=== PATIENT | male | born 1935 | race Caucasian/White ===

== ENCOUNTER 2017-01-15 05:40 | Inpatient (IN) | payer BC ==
--- NOTE | ~2017-01-15 | EGD ---
EGD REPORT [facility] [address] [address] NAME: RUDDY LIMON : 34 STATUS : ADM IN PAT#: [id number] AGE: 81 ADM/REG DATE : 01/15/17 MR#: [id number] REPORT SERV DATE: 01/30/17 DICTATED BY: TALIB MONTERROSO DATE: 01/30/17 REPORT STATUS : Draft [facility]ANSCRIBED BY: [facility] DATE: 01/30/17 Endoscopy Center Patient Name: Ruddy Limon Date of : 1935 Attending MD: TALIB MONTERROSO MD Procedure Date No Time: 01/30/2017 Procedure: Upper GI endoscopy Indications: Place PEG because patient is unable to eat, Place PEG due to impaired swallowing, Place PEG due to aspiration risk Referring MD: PRIYA LEOS Medicines: Propofol per Anesthesia Complications: No immediate complications. Procedure: Pre-Anesthesia Assessment: - ASA Grade Assessment: II - A patient with mild systemic disease. After obtaining informed consent, the endoscope was passed under direct vision. Throughout the procedure, the patient's blood pressure, pulse, and oxygen saturations were monitored continuously. The GIF [id number] was introduced through the mouth, and advanced to the third part of duodenum. The upper GI endoscopy was accomplished without difficulty. The patient tolerated the procedure well. Findings: Non-severe esophagitis with no bleeding was found in the entire esophagus. A small hiatus hernia was present. as seen on retroflexion Diffuse mild inflammation characterized by congestion (edema) and erythema was found in the entire examined stomach. The patient was placed in the supine position for PEG placement. The stomach was insufflated to appose gastric and abdominal ahuja. A site was located in the body of the stomach with excellent transillumination and manual external pressure for placement. The abdominal wall was marked and prepped in a sterile manner. The area was anesthetized with 4 mL of 1% lidocaine. The trocar needle was introduced through the abdominal wall and into the stomach under direct endoscopic view. A snare was introduced through the endoscope and opened in the gastric lumen. The guide wire was passed through the trocar and into the open snare. The snare was closed around the guide wire. The endoscope and snare were removed, pulling the wire out through the mouth. A skin incision was made at the site of needle insertion. The externally removable 24 Fr EndoVive Safety gastrostomy tube was lubricated. The G-tube was passed over the guide wire through the mouth, and into the stomach. The trocar EGD REPORT [place] [id number] [facility] [place]. [address] NAME: RUDDY LIMON : 34 STATUS : ADM IN [facility]#: [id number] AGE: 81 ADM/REG DATE : 01/15/17 MR#: [id number] REPORT SERV DATE: 01/30/17 DICTATED BY: TALIB MONTERROSO DATE: 01/30/17 REPORT STATUS : Draft TRANSCRIBED BY: [employer] SERVICES DATE: 01/30/17 needle was removed, and the gastrostomy tube was pulled out from the stomach through the skin. The guide wire was removed, and the external bumper attached to the gastrostomy tube. The feeding tube was then cut to an appropriate length. The final position of the gastrostomy tube was confirmed by relook endoscopy, and skin marking noted to be 4 cm at the external bumper. The final tension and compression of the abdominal wall by the PEG tube and external bumper were checked and revealed that the bumper was loose and lightly touching the skin and that the PEG balloon was loose and lightly touching the stomach. The feeding tube was capped, and the tube site was cleaned and dressed. The examined duodenum was normal. Impression: - Non-severe reflux esophagitis. - Hiatus hernia. - Gastritis. - Normal examined duodenum. - An externally removable PEG placement was successfully completed. Recommendation: - NPO. - see order sheet - Use Protonix (pantoprazole) 40 mg PO BID. - take 30-60 minutes before breakfast and supper - Return patient to hospital [facility] for ongoing care. Procedure Code(s): --- Professional --- 96804, Esophagogastroduodenoscopy, flexible, transoral; with directed placement of percutaneous gastrostomy tube Diagnosis Code(s): --- Professional --- K21.0, Gastro-esophageal reflux disease with esophagitis K44.9, Diaphragmatic hernia without obstruction or gangrene K29.70, Gastritis, unspecified, without bleeding R63.3, Feeding difficulties Z43.1, Encounter for attention to gastrostomy R13.10, Dysphagia, unspecified CPT copyright 2013 [employer]. All rights reserved. The codes documented in this report are preliminary and upon tuckpointer cleaner caulker review may be revised to meet current compliance requirements. Talib Monterroso MD TALIB MONTERROSO MD EGD REPORT [facility] [address] [place] [address] [address] [address] NAME: RUDDY LIMON : 34 STATUS : ADM IN [facility]#: [id number] AGE: 81 ADM/REG DATE : 01/15/17 MR#: [id number] REPORT SERV DATE: 01/30/17 DICTATED BY: TALIB MONTERROSO DATE: 01/30/17 REPORT STATUS : Draft TRANSCRIBED BY: [employer] SERVICES DATE: 01/30/17 01/30/2017 3:44 PM This report has been signed electronically. Number of Addenda: 0 Note Initiated On: 01/30/2017 2:27 PM Scope Withdrawal Time 0 hours 0 minutes [address] [place], [place] [address] [address]
--- NOTE | ~2017-01-15 | OP ---
Record Of Operation [facility] [address] [place]. 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 PROCEDURE PERFORMED: 1. Composite resection of the skin, subcutaneous tissue, and mandible with a 6 x 7 cm mental/submental defect. 2. Right selective neck dissection. 3. Left selective neck dissection. 4. Cranial nerve transposition, 11th cranial nerve, right. 5. The cranial nerve transposition, left cranial nerve #11. 6. Inner table mandibulectomy. SURGEON: Priya Leos M.D. TALENT SOURCING SPECIALIST: Desmond Bruce. ANESTHESIA: General. COMPLICATIONS: None. CONDITION: Stable to recovery. INDICATIONS: An 81-year-old male, with a history of squamous cell carcinoma of the left lower lip with perineural spread, poor differentiation, and close margins, who underwent surgery followed by radiation therapy. He had a recurrence regionally in the submental space with fixation to the anterior chin, and eruption through the skin, and subcutaneous tissues. The PET-CT scan showed no evidence of cortical bone erosion or of additional regional lymphadenopathy other than the area of the midline chin erupting through the skin. He had no distant metastasis. The risks, benefits, and alternatives to surgery were explained and he agreed. PROCEDURE IN DETAIL: The patient was identified in preoperative holding, taken back to the operating room, and placed supine on the operating room table. General anesthesia was established. A time-out was called, the patient and procedure were confirmed. He was prepped and draped in a standard fashion for the operation. I outlined an apron incision from mastoid [id number]-tv-[id number] tip running through a preexisting skin crease two fingerbreadths above the sternal notch, and then outlined the midpole subcutaneous nodularity with a surgical marking pen, and marked a 1 cm margin around this. The area both the neck incision and the chin lesion site were infiltrated subcutaneously with 1% lidocaine with 1:100,000 epinephrine, a total of 10 mL. He was then prepped and draped in a standard fashion for the Record Of Operation [address] [address] NAME: RUDDY ASHER : 34 STATUS : ADM IN PAT#: [id number] AGE: 81 ADM/REG DATE : 01/15/17 MR#: [id number] REPORT SERV DATE: 01/15/17 DICTATED BY: PRIYA LEOS DATE: 01/15/17 REPORT STATUS : Draft TRANSCRIBED BY: MODL DATE: 01/15/17 operation including prepped for pectoralis major myocutaneous flap to be performed by Plastic surgery. Initially, the Bovie cautery was used on 15 cut, 25 coag, using 2.5x loupe magnification, and headlight illumination, the operation commenced. The Bovie cautery was used in the cut mode to make the skin incision and down to platysma right side across the midline to the left. Subplatysmal flaps were elevated superiorly and inferiorly and this was done with a Bovie cautery. I then used a combination of Harmonic Scalpel, bipolar cautery cold dissection for the remainder of the case. After the subplatysmal flaps were elevated, the fascia was taken off the sternomastoid muscle controlling the external jugular vein and the greater auricular nerve. This allowed access to the deep neck, superiorly the digastric muscle, inferiorly the omohyoid muscle, and deep to the deep cervical rootlets, and deep neck muscle fascia. The lymphatics were dissected off the deep neck muscular fascia superiorly at the level of the digastric muscle and the spinal accessory nerve. A vessel loop was used to secure the spinal accessory nerve and released it from the surrounding lymphatic tissue, it was transposed superiorly and laterally, and then inferiorly and medially to provide access to the submuscular recess to remove lymphatics from this area over the splenius capitis and levator scapulae muscles. The lymph nodes were then dissected and delivered beneath the spinal accessory nerve and brought into continuity with levels 2A and 3. This dissection went down to the omohyoid muscle, to the omohyoid fascia, and then medially to the jugular vein lifting the lymph nodes off the cervical rootlets, and the deep neck fascia over the carotid artery jugular vein, and just inferiorly to the submandibular gland. This was sent as levels 2 and 3, and then the right level 1 was dissected by securing the facial artery and vein, delivering the submandibular gland from the right submandibular fossa, and the pre and post facial lymph nodes with it. The marginal branch of the facial nerve was reflected superiorly. Although not directly identified, due to radiation changes and adhesions. Once the submandibular gland was removed from the fossa, we turned attention to the left side. The left neck was dissected in a similar fashion. We the lymph nodes into levels 1, 2, and 3. Once, the flaps were elevated, and the lymph nodes had been dissected on both the right and left side, we turned attention to the primary tumor in the anterior submental space interrupting through the skin. We used a Bovie cautery on the cut mode to make a skin incision around the primary lesion, and cautery mode to take it down to the bone of the mandible just anteriorly to the mental foramina bilaterally, and correction down the anterior mandible. This was connected with the neck dissections by identifying the hypoglossal nerve, dissecting them anteriorly on both the right and left side, and then and releasing the digastric muscles at the anterior belly. This provided access to the healthy deeper tissue with the mylohyoid muscle which was transected as well. We then used a sagittal saw and excised the tumor from the mentum of the chin performing osteotomies just anterior to the mental foramina bilaterally, correction down the border of the mandible, and posterior to the geniohyoid tubercle just inferior to this. Cutting through the mandible, we did encounter some residual cancer that was in the digastric muscle insertions to the mandible. This area was dissected out of the inner surface of the mandible with a healthy periosteal layer without evidence of cortical erosion. The digastric was from these to the sublingual tissue in the floor of mouth as a superior deep margin, and frozen section margins were taken from the sublingual gland showing no evidence of cancer extending into the floor of the mouth superiorly. We then took the specimen off the geniohyoid tubercle and this did show cancer cells present. A cutting bur was then used to drill the inner cortex of the mandible from the mental [id number]-[id number] foramen clearing all periosteum and Record Of Operation [address] [facility]. [address] NAME: RUDDY ASHER : 34 STATUS : ADM IN PAT#: [id number] AGE: 81 ADM/REG DATE : 01/15/17 MR#: [id number] REPORT SERV DATE: 01/15/17 DICTATED BY: PRIYA LEOS DATE: 01/15/17 REPORT STATUS : Draft TRANSCRIBED BY: MODL DATE: 01/15/17 inner cortex of mandible. There was a clear margins in this area. A marrow sample was sent as well showing no evidence of cancer in the bone marrow. The margins were also taken from the specimen itself in the area of the skin excision at 12, 3, 6, and 9 o'clock and all of these margins were negative. After selective margins had been assessed and determined negative and the site cleared of tumor, the wound was irrigated with saline. Bipolar cautery was used for hemostasis. Cranial nerves functioned at the end of the case. Plastic surgery was called to the operating room for reconstruction of a 6 x 7 cm skin defect including a marginal mandibulectomy as well. This was to be closed with myocutaneous pectoralis major flap. The Dobhoff tube was to be placed and the patient was to remain intubated overnight for airway protection. PH/MODL Priya Leos M.D. / [id number] CC: Priya Leos M.D.
--- NOTE | ~2017-01-15 | OP ---
Record Of Operation [facility] [address] [place]. [address] NAME: RUDDY ASHER : 34 STATUS : DIS IN PAT#: [id number] AGE: 81 ADM/REG DATE : 01/15/17 MR#: [id number] REPORT SERV DATE: 02/07/17 DICTATED BY: SADIA MENON DATE: 02/07/17 REPORT STATUS : Draft TRANSCRIBED BY: MODL DATE: 02/07/17 DATE OF PROCEDURE: 02/04/2017 PREOPERATIVE DIAGNOSES: 1. Mandibular symphysis fracture. 2. History of oral cancer and partial mandibular resection. POSTOPERATIVE DIAGNOSES: 1. Mandibular symphysis fracture. 2. History of oral cancer and partial mandibular resection. PROCEDURE: Open reduction and internal fixation of the mandible. RESIDENT: Devyn Steward. ANESTHESIA: General endotracheal. COMPLICATIONS: None. INDICATION FOR THE PROCEDURE: The patient is an 81-year-old male, who has undergone a partial mandibulectomy and reconstruction with a pectoralis flap in the postoperative healing. He has developed a mandibular symphysis fracture. He is appropriate for open reduction and internal fixation of the mandible. The risks of the procedure including but not limited to infection, bleeding, scarring, delayed wound healing, wound dehiscence, bone malunion, and the need for further surgery were discussed. DESCRIPTION OF PROCEDURE: After consent was obtained, he was identified and taken to the operating room. He underwent general anesthesia. His face was prepped and draped in the usual sterile fashion. An incision was made along the junction of the previously placed pectoralis flap in the submental area at the junction with the chin. Through this incision, the pectoralis muscle was from the underlying tissue. The resected edges of the mandible were identified at the inferior border of the mandible. This was dissected superiorly until the alveolar portion of the mandible was identified and a linear minimally displaced fracture was identified in the symphysis area of the alveolar mandible. The patient was placed into occlusion and manually held in position. Using Nancy Rock plating system, a tension band 1.5 mm plate with four holes was placed across the fracture in the alveolar portion of the symphysis. 5 mm screws were placed to hold the fracture in the appropriate fixation. Once this was completed, 2.3 mm plate was contoured to replace the inferior border of the mandible with three screws on either side of the mandibular defect with the plate clamped in position to the mandible. Three screws were placed on either side of the mandibular body on the left and the right bicortical locking screws to secure the reconstruction plate to the mandible. The patient was noted to have good stability of the mandible with this maneuver. The wound was irrigated with saline. The incision was then closed in three layers with Vicryl sutures and nylon sutures. He tolerated the procedure well. He was extubated and transferred to the recovery area and he will return to his hospital room. Record Of Operation [facility] [address] [place]. [address] NAME: RUDDY ASHER : 34 STATUS : DIS IN PAT#: [id number] AGE: 81 ADM/REG DATE : 01/15/17 MR#: [id number] REPORT SERV DATE: 02/07/17 DICTATED BY: SADIA MENON DATE: 02/07/17 REPORT STATUS : Draft TRANSCRIBED BY: NAINA DATE: 02/07/17 KIM/NAINA Sadia Menon M.D. / [id number] CC: Ventura Santana M.D. UNKNOWN
--- NOTE | ~2017-01-15 | OP ---
Record Of Operation [facility] [address] [place]. [address] NAME: RUDDY ASHER : 34 STATUS : ADM IN PAT#: [id number] AGE: 81 ADM/REG DATE : 01/15/17 MR#: [id number] REPORT SERV DATE: 01/15/17 DICTATED BY: SADIA MENON DATE: 01/15/17 REPORT STATUS : Draft TRANSCRIBED BY: MODL DATE: 01/15/17 DATE OF PROCEDURE: 01/15/2017 PREOPERATIVE DIAGNOSES: 1. History of recurrent squamous cell carcinoma in the submental area. 2. History of radiation therapy to the neck. POSTOPERATIVE DIAGNOSES: 1. History of recurrent squamous cell carcinoma in the submental area. 2. History of radiation therapy to the neck. PROCEDURE: Reconstruction of submental defect with right pectoralis myocutaneous flap. SURGEON: Sadia Menon M.D. RESIDENT SURGEON: Lupillo Mireles MD ANESTHESIA: General endotracheal. COMPLICATIONS: None. INDICATION FOR THE PROCEDURE: The patient is an 81-year-old male, with squamous cell carcinoma of the head and neck. He has had resection and radiation therapy. He has recurrence in the submental area. He is appropriate today for combined procedure with Dr. Santana, who will resect the lesion, following which I will reconstruct the defect with a myocutaneous fat flap. DESCRIPTION OF PROCEDURE: The patient is in the operating room, under general anesthesia, Dr. Santana had completed his portion of the procedure. The patient has had a bilateral neck incision extending across the midline. He has had resection of a large mass including the submental area and anterior portion of the mandible, however, the mandible is intact toward the alveolar process. The skin defect measures 7 x 6 cm. Based on the location of the defect, the skin island was designed over the right pectoralis muscle. The skin island was incised with a scalpel. Electrocautery was used to dissect through the soft tissue. Once the position of the pedicle was confirmed overlying the muscle. The skin and fatty tissue were elevated from the pectoralis muscle over its entire length from the sternum to the clavicle and toward the axilla. The pectorals myocutaneous flap was then elevated from the chest wall by releasing the muscle from its attachments inferiorly, medially, and along the chest wall. Once this was completed, the muscle was divided from its insertion at the humerus. A skin tunnel was then created from the chest donor site to the right neck. The myocutaneous flap was then rotated through this tunnel. Care was taken to make the tunnel large enough to avoid any compression and kinking of the pedicle was also avoided. Next, the genioglossus muscle was sutured up to the periosteum of the mandible laterally to support swallowing function. Next, the muscle portion of the pectoralis myocutaneous flap was sutured to the musculature at the base of the tongue to obliterate space. The skin portion was then sutured to the deep to close the defect at the submental area using Vicryl Record Of Operation [address] [address] NAME: RUDDY ASHER : 34 STATUS : ADM IN [facility]#: [id number] AGE: 81 ADM/REG DATE : 01/15/17 MR#: [id number] REPORT SERV DATE: 01/15/17 DICTATED BY: SADIA MENON DATE: 01/15/17 REPORT STATUS : Draft TRANSCRIBED BY: NAINA DATE: 01/15/17 sutures and nylon sutures. A 15 round Jermaine drain was placed at the neck. The platysma was reapproximated with Vicryl sutures. The skin was closed with quinn. A drain was placed to bulb suction. The chest donor site was irrigated with saline. A 15 round Jermaine drain was placed. The incision was closed in three layers with Monocryl sutures and quinn. Next, the Dobhoff tube was placed down the left naris, 60 cm was passed without resistance or difficulty, it was sutured in place. Sterile dressings were applied. The patient tolerated the procedure well. He will be transported to the medical intensive care unit. KIM/NAINA Sadia Menon M.D. / [id number] CC: Ventura Santana M.D.
--- NOTE | ~2017-01-15 | OP ---
Record Of Operation [facility] [address] [place]. [address] NAME: RUDDY ASHER : 34 STATUS : ADM IN PAT#: [id number] AGE: 81 ADM/REG DATE : 01/15/17 MR#: [id number] REPORT SERV DATE: 01/17/17 DICTATED BY: TONO MOON IV DATE: 01/17/17 REPORT STATUS : Draft TRANSCRIBED BY: NAINA DATE: 01/17/17 DATE OF PROCEDURE: 01/17/2017 LARYNGOSCOPIC INTUBATION NOTE PREOPERATIVE DIAGNOSIS: Hypoxemic respiratory failure with inability to clear secretions. POSTOPERATIVE DIAGNOSIS: Hypoxemic respiratory failure with inability to clear secretions. PROCEDURE: Laryngoscopic intubation with ventilator setup. INDICATIONS: Patient inability to clear secretions with rapidly progressive hypoxemic respiratory failure. CONTRAINDICATIONS: None. CONSENT: No consent was obtained. This is a lifesaving procedure and the patient is a full code. PREOPERATIVE LABS: Patient's platelet count was 141,000. SPRING SETTER: Tono Moon M.D. METHOD: All equipment was made available. The patient was brought to the head of the bed. His pillow was placed under his shoulders to better align his airway. His tube feeds had been turned off. He was Ambu bag assist ventilated while everything was being made available. Saturations improved from the 80% range to the mid 90% range with Ambu bag ventilation. Once all equipment was made available, the patient was given 20 mL of etomidate IV. Once he was more relaxed, a curved #4 glide scope blade was used to visualize the patient's vocal cords. There was marked edema with difficulty recognizing structures. The vocal cords could be visualized, it was extremely edematous in the area. A 7-F endotracheal tube was advanced on first pass through the vocal cords without difficulty. There was appropriate color change with the CO2 indicator. There were bilateral breath sounds. The patient had marked rhonchi initially that resolved once tube was in place. There was no blood loss. Tube was secured at 24 cm; however, was a little deep on x-ray, so was pulled back to 23 cm. Tracheal aspirate was sent for Gram stain culture. The patient was placed on propofol for sedation. Vent settings were rate of 12, tidal volume of 550 mL, PEEP of 5, FiO2 of 100%. MANINDER/NAINA Tono Moon IV, M.D. Record Of Operation [address] [address] NAME: RUDDY ASHER : 34 STATUS : ADM IN PAT#: [id number] AGE: 81 ADM/REG DATE : 01/15/17 MR#: [id number] REPORT SERV DATE: 01/17/17 DICTATED BY: TONO MOON IV DATE: 01/17/17 REPORT STATUS : Draft TRANSCRIBED BY: MODL DATE: 01/17/17 / [id number] CC: Ventura Santana M.D.
--- NOTE | ~2017-01-15 | CN ---
Consultation Report [facility] [address] [place]. [address] NAME: RUDDY ASHER : 34 STATUS : ADM IN PAT#: [id number] AGE: 81 ADM/REG DATE : 01/15/17 MR#: [id number] REPORT SERV DATE: 01/15/17 DICTATED BY: TALIB MAGALLON DATE: 01/15/17 REPORT STATUS : Draft TRANSCRIBED BY: MODL DATE: 01/15/17 CONSULT DATE OF CONSULTATION: 01/15/[address] Santana postop management. 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 The patient had a flap placed today. We will have dissection done on pectoral flap. This was following dissection of the pectoral flap to the chin. The patient is now on mechanical ventilation. PAST MEDICAL HISTORY: Significant for prostate cancer treated with cryotherapy in 2006, left knee replacement in 2012, and total knee surgery as noted. REVIEW OF SYSTEMS: Otherwise negative and noncontributory. The patient was a former heavy smoker. FAMILY HISTORY: Significant for gastric malignancy otherwise no known history of malignancy in the family. No history of smoking. On examination, he is orally intubated. PHYSICAL EXAMINATION: VITAL SIGNS: Currently are stable, afebrile. HEENT: Head is normocephalic. Chin flap noted. Incision stapled across the neck. Pectoral flap development seen. CHEST: Decreased breath sounds. Clear to auscultation and percussion. No wheezing or rhonchi. CARDIAC: S1 and S2. No murmurs or gallops. ABDOMEN: Soft, nontender. No masses or organomegaly. EXTREMITIES: No clubbing, cyanosis, or edema. Pulses palpable. NEUROLOGIC: He is currently sedated. LAB DATA: His arterial blood gas at 1400 hours showed a pH of 7.40, pCO2 of 40, and PO2 of 317 on 100%. Electrolytes today does show sodium of 142, potassium 3.9, chloride 106, CO2 of 30, BUN 10, glucose 99, and calcium 9.2. CBC 12.2, 36.7, white count 5100, platelet count 167,000, PTT 29.7. Chest x-ray is clear. Cardiac size is normal. Review of the anesthesia record reveals 2200 mL blood loss. He was via Jameson-Synephrine during surgery and had 450 mL urine output. No significant hypotension during surgery. Consultation Report [address] [place]. [address] NAME: RUDDY ASHER : 34 STATUS : ADM IN PAT#: [id number] AGE: 81 ADM/REG DATE : 01/15/17 MR#: [id number] REPORT SERV DATE: 01/15/17 DICTATED BY: TALIB MAGALLON DATE: 01/15/17 REPORT STATUS : Draft TRANSCRIBED BY: NAINA DATE: 01/15/17 Had Ancef and Flagyl preop. IMPRESSION: 1. Status post flap to chin, pectoral. 2. History of squamous cell cancer of the lip with wide excision. 3. History of prostate cancer treated with cryotherapy. 4. History of squamous cell cancer of the lip treated with radiation. 5. Hypercholesterolemia. 6. Previous total knee. PLAN: Wean ventilator. Plan for extubation tomorrow. Lower FiO2. Continue with bronchodilator protocol. RP/NAINA Talib Magallon M.D. / [id number] CC: Ventura Santana M.D.
--- NOTE | ~2017-01-15 | DS ---
Discharge Summary [address] [place]. [address] NAME: RUDDY ASHER : 34 STATUS : DIS IN PAT#: [id number] AGE: 81 ADM/REG DATE : 01/15/17 MR#: [id number] REPORT SERV DATE: 02/20/17 DICTATED BY: PRIYA SANTANA DATE: 02/19/17 REPORT STATUS : Draft TRANSCRIBED BY: MODL DATE: 02/19/17 Data Collection from hospitalization DISCHARGE DIAGNOSES: 1. 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 2. History of prostate cancer. 3. Former smoker. 4. Hypercholesterolemia. CONSULTATIONS: Dr. Denver Magallon, Dr. Eduard Menon. PROCEDURES PERFORMED: 1. Composite resection of the skin, subcutaneous tissue, and mandible with a 6 x 7 cm mental/submental defect, right selective neck dissection, left selective neck dissection; cranial nerve transposition, 11th cranial nerve, right; the cranial nerve transposition, left cranial nerve, #11, inner table mandibulectomy, 01/15/2017. 2. Reconstruction of submental defect with right pectoralis myocutaneous flap, 01/15/2017. 3. Laryngoscopic intubation with ventilator setup, 01/17/2017. 4. Upper GI endoscopy, 01/30/2013. 5. Open reduction and internal fixation of the mandible, 02/04/2017. 6. CT scan of the neck with contrast, 01/20/2017. 7. CT scan of the neck with contrast, 01/29/2017. 8. CT-guided aspiration of fluid from left neck abscess/fluid collection, 01/31/2017. PATHOLOGY: Lymph nodes, right neck, level 2 lymph node dissection (18)-no metastasis identified (0/18). Lymph nodes, right neck, level 3 lymph nodes dissection (8)-no metastasis identified (0/8). Lymph nodes, right external jugular lymph node dissection, including portion of jugular vein-no metastasis identified (0/1 lymph node). Jugular vein- no tumor identified. Skin, submental 12 o'clock margin-no malignancy identified. Skin, submental 3 o'clock margin-no malignancy identified. Skin, submental 6 o'clock margin-no malignancy identified. Skin, submental 9 o'clock margin-no malignancy identified. Lymph nodes, left, level 2 lymph node dissection (6)-no metastasis identified (0/6). Lymph nodes, left neck, level 3 lymph node dissection (6)-no metastasis identified (0/6). Left external jugular lymph node dissection, including portion of jugular vein-no lymph nodes within the dissection. Connective tissue negative for malignancy. Lymph nodes, left neck, level 1 lymph node dissection (2 nodes)-no metastasis identified (0/2). Salivary gland, left mandibular gland excision-benign salivary gland. Appears normal for the patient's age (no lymph node identified). Right sublingual gland biopsy-atrophy with patchy lymphocytic inflammation. No malignancy recognized. Left sublingual gland biopsy-atrophy with patchy lymphocytic inflammation. No malignancy recognized. Glenoid tubercle biopsy-metastatic poorly differentiated squamous carcinoma. Anterior mandible biopsy-small amount of tissue. No tumor seen. Skin and subcutaneous tissue including anterior mandible digastric muscle and sublingual glands composite resection-metastatic poorly differentiated squamous carcinoma, primary vermilion border of lower lip. DISCHARGE MEDICATIONS: Aspirin 81 mg daily, Peridex rinse as directed four times a day, Colace 200 mg daily, heparin 5000 units subcutaneously every eight hours, NovoLog injection Discharge Summary [address] [address] NAME: RUDDY ASHER : 34 STATUS : DIS IN PAT#: [id number] AGE: 81 ADM/REG DATE : 01/15/17 MR#: [id number] REPORT SERV DATE: 02/20/17 DICTATED BY: PRIYA SANTANA DATE: 02/19/17 REPORT STATUS : Draft TRANSCRIBED BY: NAINA DATE: 02/19/17 insulin as instructed, centrum multivitamin-minerals 15 mL daily, Protonix 40 mg IV before breakfast and supper, transderm scopolamine patch one patch topically every 72 hours, Zocor 40 mg at bedtime, DuoNeb 3 mL via inhaler every four hours while awake, Augmentin liquid 875 mg twice a day for three more days. CONDITION AT DISCHARGE: Stable. DISPOSITION: The patient was discharged to [facility] on tube feedings with activities as instructed. HOSPITAL COURSE: This is an 81-year-old man, who has a history of squamous cell carcinoma of the left lower lip with perineural spread, poor differentiation, and close margins, who had undergone surgery followed by radiation therapy. He had a recurrence regionally in the submental space with fixation to the anterior chin and eruption through the skin and subcutaneous tissues. PET-CT scan showed no evidence of cortical bone erosion or of additional region lymphadenopathy, other than the area of the midline chin erupting through the skin. He had no distant metastasis. Treatment options were discussed and it was elected to proceed with surgical intervention. He was admitted to the hospital at this time for further evaluation and treatment. Upon admission, he was taken to the operating room, where he underwent the above-mentioned procedure by myself and Dr. Eduard Menon. He tolerated this well and there were no complications. Postoperatively, he was seen by Dr. Denver Magallon for postop management. The patient was still on mechanical ventilation. He had received Ancef and Flagyl preoperatively. The ventilator was going to be weaned. We would plan for extubation the following day. FiO2 would be lowered. We would continue with bronchodilator protocol. A PICC line was inserted. On postop day one, there was some concern for flap perfusion. The nurse said it appeared to turn white after being read earlier in the day. He was still intubated and sedated. His head was positioned to the right. We would monitor the flap for improvement. On the , there had been color change overnight. He had 2+ capillary refill. His current care was continued. He remained stable on the ventilator. The flap appeared viable. His T-max that morning was 102.2. Chest x-ray showed atelectasis. A CPAP trial was going to be performed. He was evaluated by Physical Therapy. On 01/17/2017, the patient developed respiratory distress. He had been extubated. He had developed hypoxic respiratory failure with inability to clear secretions. Dr. Adam Moon performed a laryngoscopic intubation with ventilator setup. His T-max was 100.1. We planned to keep him intubated for 48-72 hours. Tube feedings were continued. On 01/18/2017, the patient seemed to be doing well. He had complained of a headache during the night. He denied any pain. The next day, he was doing well. He had no new issues. The flap appeared viable. He had positive capillary refill. Supportive care continued. On 01/20/2017, a CT scan of the neck with contrast was performed. He was in no acute distress. Tube feedings continued. Subcutaneous heparin was being provided for DVT prophylaxis. On the , the patient was extubated. He had minimal secretions. Supportive care continued. Blood cultures remained negative. Pepcid was being given for GI prophylaxis. The flap was pink with good capillary refill. He was evaluated by Occupational Therapy. He did complain of a headache. His airway remained stable. On 01/24/2017, a bedside swallow evaluation was Discharge Summary [address] [address] NAME: RUDDY ASHER : 34 STATUS : DIS IN PAT#: [id number] AGE: 81 ADM/REG DATE : 01/15/17 MR#: [id number] REPORT SERV DATE: 02/20/17 DICTATED BY: PRIYA SANTANA DATE: 02/19/17 REPORT STATUS : Draft TRANSCRIBED BY: NAINA DATE: 02/19/17 performed by Speech/Language Pathology. The patient had overt signs and symptoms of aspiration with thin liquids. Aspiration precautions were in place. Tube feedings were continued. On the , the patient had been transferred to the floor. He had been more comfortable during the night. He was still receiving tube feedings. The flap appeared viable with mild breathing. Supportive care continued. O2 was being weaned as tolerated. White blood cell count was 11.4. Speech/Language Pathology performed a repeat bedside swallow evaluation. The patient had limited movement of the tongue. Aspiration precautions remained in place. On 01/28/2017, he continued to complain of a headache. He was found to have E coli urinary tract infection. On 01/29/2017, CT scan of the neck with contrast was performed. He had some left facial swelling. He was seen by Dr. Denver Andres. The patient was unable to eat. It was felt that a PEG tube would need to be placed due to impaired swallowing. The patient does have an aspiration risk. The patient was taken to the endoscopic suite by Dr. Denver Andres, where he underwent the above-mentioned upper GI endoscopy. He tolerated this well and there were no complications. He had non-severe reflux esophagitis. There was a hiatal hernia. Gastritis was present. He had a normal examined duodenum. Externally removable PEG tube placement was successfully completed. A CT scan had shown a new nondisplaced mandible symphysis fracture. Plans were being made for operative intervention. He has left cheek and jaw edema. ZAFAR drain was going to be removed. On 01/31/2017, he had mandibular dental pain. The patient underwent CT-guided aspiration of left-sided neck abscess. The specimen was submitted for culture and stain. He was tolerating tube feeding without any problems. The next day, he was tearful. He had elements of delirium. His labs remained viable. Facial and neck swelling had decreased. Supportive care continued. On the , delirium had improved. He had no new complaints. Plans were being made to proceed with surgery. On 02/04/2017, he was ambulating in the halls. He said he felt a little weak. Procalcitonin level was going to be checked. He was taken to the operating room, where he underwent open reduction and internal fixation of the mandible. He tolerated this well and there were no complications. On the , his T-max was 101.2. He had no new complaints. The flap remained viable. His incisions looked intact. He was evaluated by Physical Therapy. Speech/Language Pathology performed a bedside swallow evaluation. The patient did have overt signs and symptoms of aspiration. Due to limited range of motion of pharyngeal musculature, aspiration precautions were in place. Urinalysis was going to be checked as well as a chest x-ray. The next day, he was feeling okay. He did complain of some secretions. His pain was well controlled. He was changed to Augmentin liquid. E-stim treatments were going to be provided. Discharge planning continued. On 02/07/2017, discharge instructions were given. Due to his improved and stable condition, he was discharged to [facility] with the above- stated instructions. Information collected by: Shayy Gonzales I submit the above information as my discharge summary. CAROL/NAINA Priya Santana M.D. Discharge Summary [facility] [address] [place]. [address] NAME: RUDDY ASHER : 34 STATUS : DIS IN [facility]#: [id number] AGE: 81 ADM/REG DATE : 01/15/17 MR#: [id number] REPORT SERV DATE: 02/20/17 DICTATED BY: PRIYA SANTANA DATE: 02/19/17 REPORT STATUS : Draft TRANSCRIBED BY: NAINA DATE: 02/19/17 / [id number] CC: Nigel Wilkins M.D. Ronald Jarl, M.D. [facility] Denver Andres M.D.
[~2017-01-15 05:40] MED LIST: ASAB PO; C25 PO; CENTRUM PO; CENTRUM TAB1 TAB PO; LORTAB10 PO; ZOCOR40 PO
[2017-01-15 16:01] LABS: ALLENS TEST Pos; BE (BASE EXCESS) -0.4 MEQ/L (0 +/- 2.5); CARBOXYHEMOGLOBIN 0.3 % (0-3); HCO3 (ACTUAL BICARBONATE) 24.2 MEQ/L (23-27); HEMOBLOGIN CONTENT 11.6 G/DL (14-18); INSTRUMENT SERIAL # 8083; METHEMOGLOBIN 0.4 % (0-3); MODE CMV; O2 CONTENT 16.9 VOL% (18-24); OPERATOR ID 13715; PCO2 (CO2 TENSION) 40 MMHG (35-45); PO2 (O2 TENSION) 317 MMHG (79-93); SAMPLE Arterial; TIDAL VOLUME 700 ML
[2017-01-16 03:45] LABS: BASOPHILS 0.1 %; BASOPHILS ABSOLUTE 0.01 10/3/uL (0.0-0.16); EOSINOPHILS 0 %; HEMOGLOBIN 10.9 g/dL (13.6-17.8); IMMATURE GRANULOCYTES 0.2 %; IMMATURE GRANULOCYTES ABSOLUTE 0.02 10/3/uL (0.0-0.11); LYMPHOCYTES 8.8 %; LYMPHOCYTES ABSOLUTE 0.93 10/3/uL (0.67-4.30); MEAN CORPUS HGB CONC 33.7 g/dL (32.0-36.0); MEAN CORPUSCULAR HEMOGLOB 30.4 pg (26.0-34.0); MEAN CORPUSCULAR VOLUME 90.2 fL (80-100); MEAN PLATELET VOLUME 9.8 fL (9.2-13.0); MONOCYTES 10.7 %; MONOCYTES ABSOLUTE 1.13 10/3/uL (0.21-1.20); NEUTROPHILS 80.2 %; NEUTROPHILS ABSOLUTE 8.47 10/3/uL (2.02-8.40); PLATELET COUNT 141 10/3/uL (150-400); RBC DISTRIBUTION WIDTH 13.3 % (12.0-16.0); RED CELL COUNT 3.58 10/6/uL (4.7-6.1)
[2017-01-16 03:47] LABS: HEMATOCRIT 32.3 % (40.0-51.0); MANUAL DIFF NO %; WHITE BLOOD CELLS 10.6 10/3/uL (4.5-10.5)
[2017-01-16 04:01] LABS: CHLORIDE, SERUM 107 MMOL/L (96-112); CO2 (CARBON DIOXIDE) 26 MMOL/L (24-34); CREATININE 1.04 MG/DL (0.70-1.30); GFR AFRICAN AMERICAN 77 ML/MIN (>=60); GFR NON AFRICAN AMERICAN 67 ML/MIN (>=60); POTASSIUM, SERUM 4.2 MMOL/L (3.5-5.3); SODIUM, SERUM 143 MMOL/L (135-148)
[2017-01-16 04:03] LABS: BUN (BLOOD UREA NITROGEN) 16 MG/DL (6-23); CALCIUM, SERUM 8.1 MG/DL (8.5-10.4); GLUCOSE, SERUM 163 MG/DL (60-99)
[2017-01-16 11:40] LABS: PREALBUMIN 18.2 MG/DL (17.0-43.0); SGOT(AST) 32 U/L (5-40); SGPT(ALT) 20 U/L (5-65); TOTAL BILIRUBIN 0.7 MG/DL (0-1.2)
[2017-01-16 11:41] LABS: A/G RATIO 0.9 (0.7-1.9); ALBUMIN 2.9 G/DL (3.5-5.0); ALKALINE PHOSPHATASE 49 U/L (45-117); GLOBULIN 3.1 G/DL (2.5-4.1)
[2017-01-17 01:14] LABS: BASOPHILS 0.2 %; BASOPHILS ABSOLUTE 0.02 10/3/uL (0.0-0.16); EOSINOPHILS 0 %; HEMATOCRIT 34.7 % (40.0-51.0); HEMOGLOBIN 11.5 g/dL (13.6-17.8); IMMATURE GRANULOCYTES 0.3 %; IMMATURE GRANULOCYTES ABSOLUTE 0.03 10/3/uL (0.0-0.11); LYMPHOCYTES 4.6 %; LYMPHOCYTES ABSOLUTE 0.49 10/3/uL (0.67-4.30); MANUAL DIFF NO %; MEAN CORPUS HGB CONC 33.1 g/dL (32.0-36.0); MEAN CORPUSCULAR HEMOGLOB 30.9 pg (26.0-34.0); MEAN CORPUSCULAR VOLUME 93.3 fL (80-100); MEAN PLATELET VOLUME 9.6 fL (9.2-13.0); MONOCYTES 6.3 %; MONOCYTES ABSOLUTE 0.67 10/3/uL (0.21-1.20); NEUTROPHILS 88.6 %; NEUTROPHILS ABSOLUTE 9.46 10/3/uL (2.02-8.40); PLATELET COUNT 120 10/3/uL (150-400); RBC DISTRIBUTION WIDTH 13.3 % (12.0-16.0); RED CELL COUNT 3.72 10/6/uL (4.7-6.1); WHITE BLOOD CELLS 10.7 10/3/uL (4.5-10.5)
[2017-01-17 01:28] LABS: ALLENS TEST Pos; BE (BASE EXCESS) 3.9 MEQ/L (0 +/- 2.5); CARBOXYHEMOGLOBIN 0.3 % (0-3); HCO3 (ACTUAL BICARBONATE) 29.4 MEQ/L (23-27); HEMOBLOGIN CONTENT 11.8 G/DL (14-18); INSTRUMENT SERIAL # 8083; METHEMOGLOBIN 0.4 % (0-3); MODE CMV; O2 CONTENT 17.1 VOL% (18-24); OPERATOR ID 13744; PCO2 (CO2 TENSION) 48 MMHG (35-45); PO2 (O2 TENSION) 300 MMHG (79-93); SAMPLE Arterial; TIDAL VOLUME 550 ML; pH 7.41 (7.37-7.43)
[2017-01-17 01:37] LABS: A/G RATIO 0.8 (0.7-1.9); ALBUMIN 2.8 G/DL (3.5-5.0); ALKALINE PHOSPHATASE 58 U/L (45-117); CHLORIDE, SERUM 109 MMOL/L (96-112); CREATININE 0.93 MG/DL (0.70-1.30); GFR AFRICAN AMERICAN 88 ML/MIN (>=60); GFR NON AFRICAN AMERICAN 76 ML/MIN (>=60); GLOBULIN 3.7 G/DL (2.5-4.1); GLUCOSE, SERUM 154 MG/DL (60-99); POTASSIUM, SERUM 4.6 MMOL/L (3.5-5.3); SGOT(AST) 41 U/L (5-40); SGPT(ALT) 20 U/L (5-65); SODIUM, SERUM 144 MMOL/L (135-148); T4 (THYROXINE) TOTAL 9.6 MCG/DL (4.5-12.0); TOTAL BILIRUBIN 1.1 MG/DL (0-1.2); TOTAL PROTEIN 6.5 G/DL (6.0-8.5)
[2017-01-17 01:41] LABS: BUN (BLOOD UREA NITROGEN) 12 MG/DL (6-23); CO2 (CARBON DIOXIDE) 32 MMOL/L (24-34)
[2017-01-17 02:12] LABS: PROCALCITONIN 0.05 ng/mL (<0.5)
[2017-01-18 03:47] LABS: BE (BASE EXCESS) 3.7 MEQ/L (0 +/- 2.5); CARBOXYHEMOGLOBIN 0.7 % (0-3); HCO3 (ACTUAL BICARBONATE) 28.6 MEQ/L (23-27); HEMOBLOGIN CONTENT 12.1 G/DL (14-18); INSTRUMENT SERIAL # 8083; METHEMOGLOBIN 0.4 % (0-3); MODE CMV; O2 CONTENT 16.8 VOL% (18-24); OPERATOR ID 31061; PCO2 (CO2 TENSION) 45 MMHG (35-45); PO2 (O2 TENSION) 128 MMHG (79-93); SAMPLE Arterial; pH 7.43 (7.37-7.43)
[2017-01-18 03:48] LABS: ALLENS TEST Pos; TIDAL VOLUME 550 ML
[2017-01-18 04:04] LABS: BASOPHILS 0.3 %; BASOPHILS ABSOLUTE 0.02 10/3/uL (0.0-0.16); EOSINOPHILS 0.9 %; EOSINOPHILS ABSOLUTE 0.07 10/3/uL (0.0-0.53); HEMATOCRIT 31.6 % (40.0-51.0); HEMOGLOBIN 10.3 g/dL (13.6-17.8); IMMATURE GRANULOCYTES 0.1 %; IMMATURE GRANULOCYTES ABSOLUTE 0.01 10/3/uL (0.0-0.11); LYMPHOCYTES 9.7 %; LYMPHOCYTES ABSOLUTE 0.75 10/3/uL (0.67-4.30); MEAN CORPUS HGB CONC 32.6 g/dL (32.0-36.0); MEAN CORPUSCULAR HEMOGLOB 30.7 pg (26.0-34.0); MEAN CORPUSCULAR VOLUME 94.3 fL (80-100); MEAN PLATELET VOLUME 9.6 fL (9.2-13.0); MONOCYTES 10.5 %; MONOCYTES ABSOLUTE 0.81 10/3/uL (0.21-1.20); NEUTROPHILS 78.5 %; NEUTROPHILS ABSOLUTE 6.06 10/3/uL (2.02-8.40); PLATELET COUNT 113 10/3/uL (150-400); RBC DISTRIBUTION WIDTH 13.3 % (12.0-16.0); RED CELL COUNT 3.35 10/6/uL (4.7-6.1); WHITE BLOOD CELLS 7.7 10/3/uL (4.5-10.5)
[2017-01-18 04:05] LABS: MANUAL DIFF NO %
[2017-01-18 04:26] LABS: CALCIUM, SERUM 8.4 MG/DL (8.5-10.4); CHLORIDE, SERUM 111 MMOL/L (96-112); CO2 (CARBON DIOXIDE) 32 MMOL/L (24-34); CREATININE 0.72 MG/DL (0.70-1.30); GFR AFRICAN AMERICAN 101 ML/MIN (>=60); GFR NON AFRICAN AMERICAN 87 ML/MIN (>=60); GLUCOSE, SERUM 168 MG/DL (60-99); POTASSIUM, SERUM 3.7 MMOL/L (3.5-5.3); SODIUM, SERUM 147 MMOL/L (135-148)
[2017-01-18 04:28] LABS: BUN (BLOOD UREA NITROGEN) 16 MG/DL (6-23); PHOSPHORUS, SERUM 1.5 MG/DL (2.5-4.5)
[2017-01-18 09:50] LABS: PROCALCITONIN <0.05 ng/mL (<0.5)
[2017-01-18 19:09] LABS: ASCORBIC ACID (UR NOT ORDER) 40 (NEG); BILIRUBIN, URINE NEGATIVE (NEG); KETONE, URINE NEGATIVE (NEG); LEUKOCYTE ESTERASE(NOT OR TRACE (NEG); WBC (NOT ORDERED) (RFLEX) 4 (0-5)
[2017-01-19 03:49] LABS: ALLENS TEST Pos; BE (BASE EXCESS) 4.8 MEQ/L (0 +/- 2.5); CARBOXYHEMOGLOBIN 0.4 % (0-3); HCO3 (ACTUAL BICARBONATE) 29.6 MEQ/L (23-27); HEMOBLOGIN CONTENT 9.6 G/DL (14-18); INSTRUMENT SERIAL # 8083; METHEMOGLOBIN 0.3 % (0-3); MODE CMV; O2 CONTENT 13.2 VOL% (18-24); PCO2 (CO2 TENSION) 45 MMHG (35-45); PO2 (O2 TENSION) 95 MMHG (79-93); SAMPLE Arterial; TIDAL VOLUME 550 ML; pH 7.44 (7.37-7.43)
[2017-01-19 04:32] LABS: BASOPHILS 0.3 %; BASOPHILS ABSOLUTE 0.02 10/3/uL (0.0-0.16); EOSINOPHILS 5.8 %; HEMATOCRIT 31.8 % (40.0-51.0); HEMOGLOBIN 10.2 g/dL (13.6-17.8); IMMATURE GRANULOCYTES 0.1 %; IMMATURE GRANULOCYTES ABSOLUTE 0.01 10/3/uL (0.0-0.11); LYMPHOCYTES 6.8 %; LYMPHOCYTES ABSOLUTE 0.47 10/3/uL (0.67-4.30); MEAN CORPUS HGB CONC 32.1 g/dL (32.0-36.0); MEAN CORPUSCULAR HEMOGLOB 30.4 pg (26.0-34.0); MEAN CORPUSCULAR VOLUME 94.6 fL (80-100); MONOCYTES 11.3 %; MONOCYTES ABSOLUTE 0.78 10/3/uL (0.21-1.20); NEUTROPHILS 75.7 %; NEUTROPHILS ABSOLUTE 5.24 10/3/uL (2.02-8.40); RBC DISTRIBUTION WIDTH 13.3 % (12.0-16.0); RED CELL COUNT 3.36 10/6/uL (4.7-6.1); WHITE BLOOD CELLS 6.9 10/3/uL (4.5-10.5)
[2017-01-19 04:34] LABS: MANUAL DIFF NO %; PLATELET COUNT 151 10/3/uL (150-400)
[2017-01-19 04:35] LABS: BUN (BLOOD UREA NITROGEN) 18 MG/DL (6-23); CALCIUM, SERUM 8.2 MG/DL (8.5-10.4); CHLORIDE, SERUM 110 MMOL/L (96-112); CO2 (CARBON DIOXIDE) 29 MMOL/L (24-34); CREATININE 0.61 MG/DL (0.70-1.30); GFR AFRICAN AMERICAN 108 ML/MIN (>=60); GFR NON AFRICAN AMERICAN 93 ML/MIN (>=60); GLUCOSE, SERUM 149 MG/DL (60-99); SODIUM, SERUM 146 MMOL/L (135-148)
[2017-01-19 04:43] LABS: PHOSPHORUS, SERUM 2.2 MG/DL (2.5-4.5)
[2017-01-20 04:03] LABS: BUN (BLOOD UREA NITROGEN) 19 MG/DL (6-23); CALCIUM, SERUM 8.2 MG/DL (8.5-10.4); CHLORIDE, SERUM 108 MMOL/L (96-112); CO2 (CARBON DIOXIDE) 28 MMOL/L (24-34); CREATININE 0.81 MG/DL (0.70-1.30); GFR AFRICAN AMERICAN 96 ML/MIN (>=60); GFR NON AFRICAN AMERICAN 83 ML/MIN (>=60); PHOSPHORUS, SERUM 2.8 MG/DL (2.5-4.5); POTASSIUM, SERUM 4.3 MMOL/L (3.5-5.3); PREALBUMIN 11.2 MG/DL (17.0-43.0); SGOT(AST) 35 U/L (5-40); SGPT(ALT) 34 U/L (5-65); SODIUM, SERUM 143 MMOL/L (135-148); TOTAL PROTEIN 6.1 G/DL (6.0-8.5)
[2017-01-20 04:10] LABS: A/G RATIO 0.5 (0.7-1.9); ALBUMIN 2.1 G/DL (3.5-5.0); ALKALINE PHOSPHATASE 83 U/L (45-117); GLUCOSE, SERUM 215 MG/DL (60-99); TOTAL BILIRUBIN 0.6 MG/DL (0-1.2)
[2017-01-20 04:24] LABS: BE (BASE EXCESS) 3.2 MEQ/L (0 +/- 2.5); INSTRUMENT SERIAL # 8083; PCO2 (CO2 TENSION) 41 MMHG (35-45); PO2 (O2 TENSION) 73 MMHG (79-93); pH 7.45 (7.37-7.43)
[2017-01-20 04:25] LABS: ALLENS TEST Pos; CARBOXYHEMOGLOBIN 0.6 % (0-3); HCO3 (ACTUAL BICARBONATE) 27.5 MEQ/L (23-27); HEMOBLOGIN CONTENT 11.6 G/DL (14-18); METHEMOGLOBIN 0.3 % (0-3); O2 CONTENT 15.4 VOL% (18-24); OPERATOR ID 33214; SAMPLE Arterial; TIDAL VOLUME 550 ML
[2017-01-21 03:42] LABS: BASOPHILS 0 %; EOSINOPHILS 0 %; HEMOGLOBIN 9.6 g/dL (13.6-17.8); IMMATURE GRANULOCYTES 0.5 %; IMMATURE GRANULOCYTES ABSOLUTE 0.05 10/3/uL (0.0-0.11); LYMPHOCYTES 5.5 %; LYMPHOCYTES ABSOLUTE 0.52 10/3/uL (0.67-4.30); MANUAL DIFF NO %; MEAN CORPUS HGB CONC 33.1 g/dL (32.0-36.0); MEAN CORPUSCULAR HEMOGLOB 29.9 pg (26.0-34.0); MEAN CORPUSCULAR VOLUME 90.3 fL (80-100); MEAN PLATELET VOLUME 9.7 fL (9.2-13.0); MONOCYTES 10.4 %; MONOCYTES ABSOLUTE 0.98 10/3/uL (0.21-1.20); NEUTROPHILS 83.6 %; NEUTROPHILS ABSOLUTE 7.91 10/3/uL (2.02-8.40); PLATELET COUNT 179 10/3/uL (150-400); RBC DISTRIBUTION WIDTH 12.4 % (12.0-16.0); RED CELL COUNT 3.21 10/6/uL (4.7-6.1); WHITE BLOOD CELLS 9.5 10/3/uL (4.5-10.5)
[2017-01-21 03:53] LABS: CALCIUM, SERUM 8.7 MG/DL (8.5-10.4); CHLORIDE, SERUM 104 MMOL/L (96-112); CO2 (CARBON DIOXIDE) 30 MMOL/L (24-34); CREATININE 0.69 MG/DL (0.70-1.30); GFR AFRICAN AMERICAN 102 ML/MIN (>=60); GFR NON AFRICAN AMERICAN 88 ML/MIN (>=60); GLUCOSE, SERUM 187 MG/DL (60-99); PHOSPHORUS, SERUM 3.6 MG/DL (2.5-4.5); POTASSIUM, SERUM 4.5 MMOL/L (3.5-5.3); SODIUM, SERUM 142 MMOL/L (135-148)
[2017-01-21 03:54] LABS: BUN (BLOOD UREA NITROGEN) 28 MG/DL (6-23)
[2017-01-22 03:59] LABS: BASOPHILS 0.1 %; BASOPHILS ABSOLUTE 0.01 10/3/uL (0.0-0.16); EOSINOPHILS 0 %; HEMATOCRIT 29.4 % (40.0-51.0); HEMOGLOBIN 9.7 g/dL (13.6-17.8); IMMATURE GRANULOCYTES 2.3 %; IMMATURE GRANULOCYTES ABSOLUTE 0.21 10/3/uL (0.0-0.11); LYMPHOCYTES ABSOLUTE 0.45 10/3/uL (0.67-4.30); MANUAL DIFF NO %; MEAN PLATELET VOLUME 9.8 fL (9.2-13.0); MONOCYTES 8.5 %; MONOCYTES ABSOLUTE 0.76 10/3/uL (0.21-1.20); NEUTROPHILS 84.1 %; NEUTROPHILS ABSOLUTE 7.55 10/3/uL (2.02-8.40); PLATELET COUNT 240 10/3/uL (150-400); RBC DISTRIBUTION WIDTH 12.5 % (12.0-16.0); RED CELL COUNT 3.23 10/6/uL (4.7-6.1)
[2017-01-22 04:10] LABS: BUN (BLOOD UREA NITROGEN) 29 MG/DL (6-23); CALCIUM, SERUM 8.6 MG/DL (8.5-10.4); CHLORIDE, SERUM 104 MMOL/L (96-112); CO2 (CARBON DIOXIDE) 30 MMOL/L (24-34); CREATININE 0.75 MG/DL (0.70-1.30); GFR AFRICAN AMERICAN 99 ML/MIN (>=60); GFR NON AFRICAN AMERICAN 85 ML/MIN (>=60); GLUCOSE, SERUM 160 MG/DL (60-99); PHOSPHORUS, SERUM 2.7 MG/DL (2.5-4.5); POTASSIUM, SERUM 4.3 MMOL/L (3.5-5.3); SODIUM, SERUM 142 MMOL/L (135-148)
[2017-01-23 04:06] LABS: BASOPHILS 0.2 %; BASOPHILS ABSOLUTE 0.02 10/3/uL (0.0-0.16); EOSINOPHILS 2.1 %; EOSINOPHILS ABSOLUTE 0.17 10/3/uL (0.0-0.53); HEMATOCRIT 31.6 % (40.0-51.0); HEMOGLOBIN 10.4 g/dL (13.6-17.8); LYMPHOCYTES 12.6 %; LYMPHOCYTES ABSOLUTE 1.02 10/3/uL (0.67-4.30); MEAN CORPUS HGB CONC 32.9 g/dL (32.0-36.0); MEAN CORPUSCULAR HEMOGLOB 30.1 pg (26.0-34.0); MEAN CORPUSCULAR VOLUME 91.3 fL (80-100); MEAN PLATELET VOLUME 9.3 fL (9.2-13.0); MONOCYTES 10.9 %; MONOCYTES ABSOLUTE 0.88 10/3/uL (0.21-1.20); NEUTROPHILS 69.2 %; NEUTROPHILS ABSOLUTE 5.59 10/3/uL (2.02-8.40); PLATELET COUNT 266 10/3/uL (150-400); RBC DISTRIBUTION WIDTH 12.5 % (12.0-16.0); RED CELL COUNT 3.46 10/6/uL (4.7-6.1); WHITE BLOOD CELLS 8.1 10/3/uL (4.5-10.5)
[2017-01-23 04:08] LABS: MANUAL DIFF NO %
[2017-01-23 04:23] LABS: BUN (BLOOD UREA NITROGEN) 32 MG/DL (6-23); CALCIUM, SERUM 8.5 MG/DL (8.5-10.4); CHLORIDE, SERUM 104 MMOL/L (96-112); CO2 (CARBON DIOXIDE) 32 MMOL/L (24-34); CREATININE 0.71 MG/DL (0.70-1.30); GFR AFRICAN AMERICAN 101 ML/MIN (>=60); GFR NON AFRICAN AMERICAN 87 ML/MIN (>=60); GLUCOSE, SERUM 136 MG/DL (60-99); PHOSPHORUS, SERUM 3.3 MG/DL (2.5-4.5); POTASSIUM, SERUM 3.7 MMOL/L (3.5-5.3); SODIUM, SERUM 144 MMOL/L (135-148)
[2017-01-24 05:37] LABS: BUN (BLOOD UREA NITROGEN) 29 MG/DL (6-23); CALCIUM, SERUM 8.7 MG/DL (8.5-10.4); CHLORIDE, SERUM 101 MMOL/L (96-112); CO2 (CARBON DIOXIDE) 31 MMOL/L (24-34); CREATININE 0.63 MG/DL (0.70-1.30); GFR AFRICAN AMERICAN 106 ML/MIN (>=60); GFR NON AFRICAN AMERICAN 92 ML/MIN (>=60); GLUCOSE, SERUM 139 MG/DL (60-99); PHOSPHORUS, SERUM 2.9 MG/DL (2.5-4.5); SODIUM, SERUM 141 MMOL/L (135-148)
[2017-01-24 05:49] LABS: BASOPHILS 0.4 %; BASOPHILS ABSOLUTE 0.04 10/3/uL (0.0-0.16); EOSINOPHILS 2.7 %; EOSINOPHILS ABSOLUTE 0.26 10/3/uL (0.0-0.53); HEMATOCRIT 33.2 % (40.0-51.0); IMMATURE GRANULOCYTES 2.8 %; IMMATURE GRANULOCYTES ABSOLUTE 0.27 10/3/uL (0.0-0.11); LYMPHOCYTES 9.3 %; LYMPHOCYTES ABSOLUTE 0.89 10/3/uL (0.67-4.30); MEAN CORPUS HGB CONC 33.1 g/dL (32.0-36.0); MEAN CORPUSCULAR HEMOGLOB 30.1 pg (26.0-34.0); MEAN CORPUSCULAR VOLUME 90.7 fL (80-100); MEAN PLATELET VOLUME 9.4 fL (9.2-13.0); MONOCYTES 10.5 %; NEUTROPHILS 74.3 %; NEUTROPHILS ABSOLUTE 7.06 10/3/uL (2.02-8.40); PLATELET COUNT 307 10/3/uL (150-400); RBC DISTRIBUTION WIDTH 12.6 % (12.0-16.0); RED CELL COUNT 3.66 10/6/uL (4.7-6.1); WHITE BLOOD CELLS 9.5 10/3/uL (4.5-10.5)
[2017-01-24 05:53] LABS: MANUAL DIFF NO %
[2017-01-25 05:10] LABS: BASOPHILS 0.2 %; BASOPHILS ABSOLUTE 0.02 10/3/uL (0.0-0.16); EOSINOPHILS 2.4 %; EOSINOPHILS ABSOLUTE 0.24 10/3/uL (0.0-0.53); HEMATOCRIT 32.4 % (40.0-51.0); HEMOGLOBIN 10.8 g/dL (13.6-17.8); IMMATURE GRANULOCYTES 1.8 %; IMMATURE GRANULOCYTES ABSOLUTE 0.18 10/3/uL (0.0-0.11); LYMPHOCYTES 9.4 %; LYMPHOCYTES ABSOLUTE 0.93 10/3/uL (0.67-4.30); MANUAL DIFF NO %; MEAN CORPUS HGB CONC 33.3 g/dL (32.0-36.0); MEAN CORPUSCULAR HEMOGLOB 30.3 pg (26.0-34.0); MEAN CORPUSCULAR VOLUME 90.8 fL (80-100); MEAN PLATELET VOLUME 9.4 fL (9.2-13.0); MONOCYTES 7.9 %; MONOCYTES ABSOLUTE 0.78 10/3/uL (0.21-1.20); NEUTROPHILS 78.3 %; NEUTROPHILS ABSOLUTE 7.78 10/3/uL (2.02-8.40); PLATELET COUNT 283 10/3/uL (150-400); RBC DISTRIBUTION WIDTH 12.3 % (12.0-16.0); RED CELL COUNT 3.57 10/6/uL (4.7-6.1); WHITE BLOOD CELLS 9.9 10/3/uL (4.5-10.5)
[2017-01-25 05:23] LABS: BUN (BLOOD UREA NITROGEN) 29 MG/DL (6-23); CALCIUM, SERUM 8.7 MG/DL (8.5-10.4); CHLORIDE, SERUM 102 MMOL/L (96-112); CO2 (CARBON DIOXIDE) 33 MMOL/L (24-34); CREATININE 0.68 MG/DL (0.70-1.30); GFR AFRICAN AMERICAN 103 ML/MIN (>=60); GFR NON AFRICAN AMERICAN 89 ML/MIN (>=60); GLUCOSE, SERUM 145 MG/DL (60-99); PHOSPHORUS, SERUM 2.1 MG/DL (2.5-4.5); POTASSIUM, SERUM 3.6 MMOL/L (3.5-5.3); SODIUM, SERUM 141 MMOL/L (135-148)
[2017-01-27 05:13] LABS: A/G RATIO 0.6 (0.7-1.9); ALBUMIN 2.2 G/DL (3.5-5.0); ALKALINE PHOSPHATASE 126 U/L (45-117); BUN (BLOOD UREA NITROGEN) 19 MG/DL (6-23); CALCIUM, SERUM 8.6 MG/DL (8.5-10.4); CHLORIDE, SERUM 102 MMOL/L (96-112); CO2 (CARBON DIOXIDE) 28 MMOL/L (24-34); CREATININE 0.63 MG/DL (0.70-1.30); GFR AFRICAN AMERICAN 106 ML/MIN (>=60); GFR NON AFRICAN AMERICAN 92 ML/MIN (>=60); GLUCOSE, SERUM 155 MG/DL (60-99); PHOSPHORUS, SERUM 2.7 MG/DL (2.5-4.5); POTASSIUM, SERUM 3.9 MMOL/L (3.5-5.3); PREALBUMIN 11.9 MG/DL (17.0-43.0); SGOT(AST) 24 U/L (5-40); SGPT(ALT) 44 U/L (5-65); SODIUM, SERUM 138 MMOL/L (135-148); TOTAL BILIRUBIN 0.6 MG/DL (0-1.2); TOTAL PROTEIN 6.2 G/DL (6.0-8.5)
[2017-01-27 05:52] LABS: BASOPHILS 0.2 %; BASOPHILS ABSOLUTE 0.02 10/3/uL (0.0-0.16); EOSINOPHILS 0.6 %; EOSINOPHILS ABSOLUTE 0.07 10/3/uL (0.0-0.53); HEMATOCRIT 29.3 % (40.0-51.0); HEMOGLOBIN 9.9 g/dL (13.6-17.8); IMMATURE GRANULOCYTES 1.4 %; IMMATURE GRANULOCYTES ABSOLUTE 0.16 10/3/uL (0.0-0.11); LYMPHOCYTES 5.4 %; LYMPHOCYTES ABSOLUTE 0.61 10/3/uL (0.67-4.30); MEAN CORPUS HGB CONC 33.8 g/dL (32.0-36.0); MEAN CORPUSCULAR VOLUME 88.8 fL (80-100); MEAN PLATELET VOLUME 9.4 fL (9.2-13.0); MONOCYTES 9.3 %; MONOCYTES ABSOLUTE 1.06 10/3/uL (0.21-1.20); NEUTROPHILS 83.1 %; NEUTROPHILS ABSOLUTE 9.48 10/3/uL (2.02-8.40); PLATELET COUNT 331 10/3/uL (150-400); RBC DISTRIBUTION WIDTH 12.4 % (12.0-16.0); WHITE BLOOD CELLS 11.4 10/3/uL (4.5-10.5)
[2017-01-27 05:53] LABS: MANUAL DIFF NO %
[2017-01-27 05:59] LABS: ALLENS TEST Pos; BE (BASE EXCESS) 4.4 MEQ/L (0 +/- 2.5); CARBOXYHEMOGLOBIN 0.2 % (0-3); HCO3 (ACTUAL BICARBONATE) 28.2 MEQ/L (23-27); HEMOBLOGIN CONTENT 10.4 G/DL (14-18); INSTRUMENT SERIAL # 8083; METHEMOGLOBIN 0.2 % (0-3); O2 CONTENT 13.7 VOL% (18-24); OPERATOR ID 15231; PCO2 (CO2 TENSION) 39 MMHG (35-45); PO2 (O2 TENSION) 68 MMHG (79-93); SAMPLE Arterial; pH 7.48 (7.37-7.43)
[2017-01-27 10:51] LABS: ASCORBIC ACID (UR NOT ORDER) NEG (NEG); BILIRUBIN, URINE NEGATIVE (NEG); KETONE, URINE NEGATIVE (NEG); LEUKOCYTE ESTERASE(NOT OR LARGE (NEG); WBC (NOT ORDERED) (RFLEX) 48 (0-5)
[2017-01-29 05:12] LABS: BASOPHILS 0.4 %; BASOPHILS ABSOLUTE 0.05 10/3/uL (0.0-0.16); EOSINOPHILS 1.5 %; EOSINOPHILS ABSOLUTE 0.18 10/3/uL (0.0-0.53); HEMATOCRIT 30.5 % (40.0-51.0); HEMOGLOBIN 10.1 g/dL (13.6-17.8); IMMATURE GRANULOCYTES 1.5 %; IMMATURE GRANULOCYTES ABSOLUTE 0.17 10/3/uL (0.0-0.11); LYMPHOCYTES 5.3 %; LYMPHOCYTES ABSOLUTE 0.62 10/3/uL (0.67-4.30); MANUAL DIFF NO %; MEAN CORPUS HGB CONC 33.1 g/dL (32.0-36.0); MEAN CORPUSCULAR HEMOGLOB 30.2 pg (26.0-34.0); MEAN CORPUSCULAR VOLUME 91.3 fL (80-100); MEAN PLATELET VOLUME 9.2 fL (9.2-13.0); MONOCYTES 9.6 %; MONOCYTES ABSOLUTE 1.12 10/3/uL (0.21-1.20); NEUTROPHILS 81.7 %; NEUTROPHILS ABSOLUTE 9.49 10/3/uL (2.02-8.40); PLATELET COUNT 359 10/3/uL (150-400); RED CELL COUNT 3.34 10/6/uL (4.7-6.1); WHITE BLOOD CELLS 11.6 10/3/uL (4.5-10.5)
[2017-01-29 05:24] LABS: BUN (BLOOD UREA NITROGEN) 22 MG/DL (6-23); CALCIUM, SERUM 8.8 MG/DL (8.5-10.4); CHLORIDE, SERUM 104 MMOL/L (96-112); CO2 (CARBON DIOXIDE) 28 MMOL/L (24-34); CREATININE 0.68 MG/DL (0.70-1.30); GFR AFRICAN AMERICAN 103 ML/MIN (>=60); GFR NON AFRICAN AMERICAN 89 ML/MIN (>=60); GLUCOSE, SERUM 151 MG/DL (60-99); POTASSIUM, SERUM 4.1 MMOL/L (3.5-5.3); SODIUM, SERUM 140 MMOL/L (135-148)
[2017-01-30 05:40] LABS: BASOPHILS 0.2 %; BASOPHILS ABSOLUTE 0.03 10/3/uL (0.0-0.16); EOSINOPHILS 0.5 %; EOSINOPHILS ABSOLUTE 0.06 10/3/uL (0.0-0.53); HEMOGLOBIN 10.2 g/dL (13.6-17.8); IMMATURE GRANULOCYTES 0.9 %; IMMATURE GRANULOCYTES ABSOLUTE 0.11 10/3/uL (0.0-0.11); LYMPHOCYTES 2.4 %; LYMPHOCYTES ABSOLUTE 0.31 10/3/uL (0.67-4.30); MEAN CORPUS HGB CONC 32.9 g/dL (32.0-36.0); MEAN CORPUSCULAR HEMOGLOB 29.4 pg (26.0-34.0); MEAN CORPUSCULAR VOLUME 89.3 fL (80-100); MEAN PLATELET VOLUME 9.3 fL (9.2-13.0); MONOCYTES 4.2 %; MONOCYTES ABSOLUTE 0.53 10/3/uL (0.21-1.20); NEUTROPHILS 91.8 %; NEUTROPHILS ABSOLUTE 11.63 10/3/uL (2.02-8.40); PLATELET COUNT 373 10/3/uL (150-400); RBC DISTRIBUTION WIDTH 13.1 % (12.0-16.0); RED CELL COUNT 3.47 10/6/uL (4.7-6.1); WHITE BLOOD CELLS 12.7 10/3/uL (4.5-10.5)
[2017-01-30 05:43] LABS: MANUAL DIFF NO %
[2017-01-30 05:48] LABS: BUN (BLOOD UREA NITROGEN) 23 MG/DL (6-23); CALCIUM, SERUM 9.3 MG/DL (8.5-10.4); CHLORIDE, SERUM 102 MMOL/L (96-112); CO2 (CARBON DIOXIDE) 28 MMOL/L (24-34); CREATININE 0.64 MG/DL (0.70-1.30); GFR AFRICAN AMERICAN 106 ML/MIN (>=60); GFR NON AFRICAN AMERICAN 91 ML/MIN (>=60); GLUCOSE, SERUM 150 MG/DL (60-99); POTASSIUM, SERUM 4.3 MMOL/L (3.5-5.3); SODIUM, SERUM 138 MMOL/L (135-148)
[2017-01-31 06:04] LABS: BASOPHILS 0.1 %; BASOPHILS ABSOLUTE 0.01 10/3/uL (0.0-0.16); EOSINOPHILS 0 %; HEMATOCRIT 29.4 % (40.0-51.0); HEMOGLOBIN 9.8 g/dL (13.6-17.8); IMMATURE GRANULOCYTES 0.5 %; IMMATURE GRANULOCYTES ABSOLUTE 0.09 10/3/uL (0.0-0.11); LYMPHOCYTES 4.5 %; LYMPHOCYTES ABSOLUTE 0.74 10/3/uL (0.67-4.30); MANUAL DIFF NO %; MEAN CORPUS HGB CONC 33.3 g/dL (32.0-36.0); MEAN CORPUSCULAR HEMOGLOB 29.7 pg (26.0-34.0); MEAN CORPUSCULAR VOLUME 89.1 fL (80-100); MEAN PLATELET VOLUME 9.2 fL (9.2-13.0); MONOCYTES 7.1 %; MONOCYTES ABSOLUTE 1.17 10/3/uL (0.21-1.20); NEUTROPHILS 87.8 %; NEUTROPHILS ABSOLUTE 14.37 10/3/uL (2.02-8.40); PLATELET COUNT 417 10/3/uL (150-400); WHITE BLOOD CELLS 16.4 10/3/uL (4.5-10.5)
[2017-01-31 06:07] LABS: CALCIUM, SERUM 9.1 MG/DL (8.5-10.4); CHLORIDE, SERUM 103 MMOL/L (96-112); CO2 (CARBON DIOXIDE) 28 MMOL/L (24-34); CREATININE 0.75 MG/DL (0.70-1.30); GFR AFRICAN AMERICAN 99 ML/MIN (>=60); GFR NON AFRICAN AMERICAN 85 ML/MIN (>=60); GLUCOSE, SERUM 144 MG/DL (60-99); POTASSIUM, SERUM 4.3 MMOL/L (3.5-5.3); SODIUM, SERUM 139 MMOL/L (135-148)
[2017-01-31 06:16] LABS: BUN (BLOOD UREA NITROGEN) 31 MG/DL (6-23)
[2017-02-01 06:35] LABS: BASOPHILS 0.3 %; BASOPHILS ABSOLUTE 0.03 10/3/uL (0.0-0.16); EOSINOPHILS 0.3 %; EOSINOPHILS ABSOLUTE 0.03 10/3/uL (0.0-0.53); HEMOGLOBIN 9.9 g/dL (13.6-17.8); IMMATURE GRANULOCYTES 1.1 %; LYMPHOCYTES 10.3 %; MEAN CORPUSCULAR HEMOGLOB 30.1 pg (26.0-34.0); MEAN CORPUSCULAR VOLUME 91.2 fL (80-100); MEAN PLATELET VOLUME 9.2 fL (9.2-13.0); MONOCYTES 10.3 %; NEUTROPHILS 77.7 %; NEUTROPHILS ABSOLUTE 6.78 10/3/uL (2.02-8.40); PLATELET COUNT 378 10/3/uL (150-400); RED CELL COUNT 3.29 10/6/uL (4.7-6.1)
[2017-02-01 06:36] LABS: MANUAL DIFF NO %; WHITE BLOOD CELLS 8.7 10/3/uL (4.5-10.5)
[2017-02-01 06:47] LABS: CALCIUM, SERUM 8.4 MG/DL (8.5-10.4); CHLORIDE, SERUM 103 MMOL/L (96-112); CREATININE 0.67 MG/DL (0.70-1.30); GFR AFRICAN AMERICAN 104 ML/MIN (>=60); GFR NON AFRICAN AMERICAN 89 ML/MIN (>=60); GLUCOSE, SERUM 116 MG/DL (60-99); POTASSIUM, SERUM 3.8 MMOL/L (3.5-5.3); SODIUM, SERUM 142 MMOL/L (135-148)
[2017-02-01 06:48] LABS: BUN (BLOOD UREA NITROGEN) 25 MG/DL (6-23); CO2 (CARBON DIOXIDE) 35 MMOL/L (24-34)
[2017-02-02 07:01] LABS: BASOPHILS 0.7 %; BASOPHILS ABSOLUTE 0.05 10/3/uL (0.0-0.16); EOSINOPHILS ABSOLUTE 0.15 10/3/uL (0.0-0.53); HEMATOCRIT 30.5 % (40.0-51.0); HEMOGLOBIN 9.9 g/dL (13.6-17.8); IMMATURE GRANULOCYTES 2.1 %; IMMATURE GRANULOCYTES ABSOLUTE 0.16 10/3/uL (0.0-0.11); LYMPHOCYTES 13.7 %; LYMPHOCYTES ABSOLUTE 1.05 10/3/uL (0.67-4.30); MEAN CORPUS HGB CONC 32.5 g/dL (32.0-36.0); MEAN CORPUSCULAR HEMOGLOB 29.7 pg (26.0-34.0); MEAN CORPUSCULAR VOLUME 91.6 fL (80-100); MEAN PLATELET VOLUME 9.3 fL (9.2-13.0); MONOCYTES 7.6 %; MONOCYTES ABSOLUTE 0.58 10/3/uL (0.21-1.20); NEUTROPHILS 73.9 %; NEUTROPHILS ABSOLUTE 5.68 10/3/uL (2.02-8.40); PLATELET COUNT 373 10/3/uL (150-400); RBC DISTRIBUTION WIDTH 13.4 % (12.0-16.0); RED CELL COUNT 3.33 10/6/uL (4.7-6.1); WHITE BLOOD CELLS 7.7 10/3/uL (4.5-10.5)
[2017-02-02 07:08] LABS: MANUAL DIFF NO %
[2017-02-02 07:11] LABS: BUN (BLOOD UREA NITROGEN) 19 MG/DL (6-23); CALCIUM, SERUM 8.9 MG/DL (8.5-10.4); CHLORIDE, SERUM 102 MMOL/L (96-112); CO2 (CARBON DIOXIDE) 30 MMOL/L (24-34); GFR AFRICAN AMERICAN 109 ML/MIN (>=60); GFR NON AFRICAN AMERICAN 94 ML/MIN (>=60); GLUCOSE, SERUM 113 MG/DL (60-99); POTASSIUM, SERUM 4.1 MMOL/L (3.5-5.3); SODIUM, SERUM 139 MMOL/L (135-148)
[2017-02-03 05:04] LABS: BASOPHILS 0.4 %; BASOPHILS ABSOLUTE 0.03 10/3/uL (0.0-0.16); EOSINOPHILS ABSOLUTE 0.32 10/3/uL (0.0-0.53); HEMATOCRIT 32.1 % (40.0-51.0); HEMOGLOBIN 10.4 g/dL (13.6-17.8); IMMATURE GRANULOCYTES 2.2 %; IMMATURE GRANULOCYTES ABSOLUTE 0.18 10/3/uL (0.0-0.11); LYMPHOCYTES 8.3 %; LYMPHOCYTES ABSOLUTE 0.67 10/3/uL (0.67-4.30); MEAN CORPUS HGB CONC 32.4 g/dL (32.0-36.0); MEAN CORPUSCULAR HEMOGLOB 29.8 pg (26.0-34.0); MONOCYTES 6.6 %; MONOCYTES ABSOLUTE 0.53 10/3/uL (0.21-1.20); NEUTROPHILS 78.5 %; NEUTROPHILS ABSOLUTE 6.35 10/3/uL (2.02-8.40); PLATELET COUNT 352 10/3/uL (150-400); RBC DISTRIBUTION WIDTH 13.1 % (12.0-16.0); RED CELL COUNT 3.49 10/6/uL (4.7-6.1); WHITE BLOOD CELLS 8.1 10/3/uL (4.5-10.5)
[2017-02-03 05:05] LABS: MANUAL DIFF NO %
[2017-02-03 05:26] LABS: A/G RATIO 0.6 (0.7-1.9); ALBUMIN 2.2 G/DL (3.5-5.0); BUN (BLOOD UREA NITROGEN) 17 MG/DL (6-23); CALCIUM, SERUM 8.8 MG/DL (8.5-10.4); CHLORIDE, SERUM 105 MMOL/L (96-112); CO2 (CARBON DIOXIDE) 28 MMOL/L (24-34); CREATININE 0.66 MG/DL (0.70-1.30); GFR AFRICAN AMERICAN 104 ML/MIN (>=60); GFR NON AFRICAN AMERICAN 90 ML/MIN (>=60); GLOBULIN 3.8 G/DL (2.5-4.1); GLUCOSE, SERUM 134 MG/DL (60-99); POTASSIUM, SERUM 4.1 MMOL/L (3.5-5.3); PREALBUMIN 14.9 MG/DL (17.0-43.0); SGOT(AST) 12 U/L (5-40); SGPT(ALT) 23 U/L (5-65); SODIUM, SERUM 141 MMOL/L (135-148); TOTAL BILIRUBIN 0.3 MG/DL (0-1.2)
[2017-02-03 05:27] LABS: ALKALINE PHOSPHATASE 91 U/L (45-117); PHOSPHORUS, SERUM 3.6 MG/DL (2.5-4.5)
[2017-02-04 06:52] LABS: BASOPHILS 0.5 %; BASOPHILS ABSOLUTE 0.04 10/3/uL (0.0-0.16); EOSINOPHILS 3.6 %; EOSINOPHILS ABSOLUTE 0.32 10/3/uL (0.0-0.53); HEMATOCRIT 33.1 % (40.0-51.0); HEMOGLOBIN 10.8 g/dL (13.6-17.8); IMMATURE GRANULOCYTES 2.5 %; IMMATURE GRANULOCYTES ABSOLUTE 0.22 10/3/uL (0.0-0.11); LYMPHOCYTES 8.1 %; LYMPHOCYTES ABSOLUTE 0.72 10/3/uL (0.67-4.30); MEAN CORPUS HGB CONC 32.6 g/dL (32.0-36.0); MEAN CORPUSCULAR HEMOGLOB 29.9 pg (26.0-34.0); MEAN CORPUSCULAR VOLUME 91.7 fL (80-100); MEAN PLATELET VOLUME 9.2 fL (9.2-13.0); MONOCYTES 6.4 %; MONOCYTES ABSOLUTE 0.57 10/3/uL (0.21-1.20); NEUTROPHILS 78.9 %; PLATELET COUNT 322 10/3/uL (150-400); RBC DISTRIBUTION WIDTH 13.4 % (12.0-16.0); RED CELL COUNT 3.61 10/6/uL (4.7-6.1); WHITE BLOOD CELLS 8.9 10/3/uL (4.5-10.5)
[2017-02-04 07:00] LABS: BUN (BLOOD UREA NITROGEN) 19 MG/DL (6-23); CALCIUM, SERUM 8.8 MG/DL (8.5-10.4); CHLORIDE, SERUM 105 MMOL/L (96-112); CO2 (CARBON DIOXIDE) 28 MMOL/L (24-34); CREATININE 0.72 MG/DL (0.70-1.30); GFR AFRICAN AMERICAN 101 ML/MIN (>=60); GFR NON AFRICAN AMERICAN 87 ML/MIN (>=60); GLUCOSE, SERUM 111 MG/DL (60-99); POTASSIUM, SERUM 4.3 MMOL/L (3.5-5.3); SODIUM, SERUM 140 MMOL/L (135-148)
[2017-02-04 07:06] LABS: MANUAL DIFF NO %
[2017-02-05 05:18] LABS: BUN (BLOOD UREA NITROGEN) 22 MG/DL (6-23); CALCIUM, SERUM 8.4 MG/DL (8.5-10.4); CHLORIDE, SERUM 103 MMOL/L (96-112); CO2 (CARBON DIOXIDE) 29 MMOL/L (24-34); CREATININE 0.79 MG/DL (0.70-1.30); GFR AFRICAN AMERICAN 97 ML/MIN (>=60); GFR NON AFRICAN AMERICAN 84 ML/MIN (>=60); POTASSIUM, SERUM 4.1 MMOL/L (3.5-5.3); SODIUM, SERUM 140 MMOL/L (135-148)
[2017-02-05 05:26] LABS: GLUCOSE, SERUM 166 MG/DL (60-99)
[2017-02-05 05:41] LABS: BASOPHILS 0.2 %; BASOPHILS ABSOLUTE 0.02 10/3/uL (0.0-0.16); EOSINOPHILS 1.7 %; HEMATOCRIT 32.2 % (40.0-51.0); HEMOGLOBIN 10.4 g/dL (13.6-17.8); IMMATURE GRANULOCYTES 1.4 %; IMMATURE GRANULOCYTES ABSOLUTE 0.16 10/3/uL (0.0-0.11); LYMPHOCYTES 4.6 %; LYMPHOCYTES ABSOLUTE 0.54 10/3/uL (0.67-4.30); MEAN CORPUS HGB CONC 32.3 g/dL (32.0-36.0); MEAN CORPUSCULAR VOLUME 92.8 fL (80-100); MEAN PLATELET VOLUME 9.1 fL (9.2-13.0); MONOCYTES 7.6 %; MONOCYTES ABSOLUTE 0.89 10/3/uL (0.21-1.20); NEUTROPHILS 84.5 %; NEUTROPHILS ABSOLUTE 9.93 10/3/uL (2.02-8.40); PLATELET COUNT 301 10/3/uL (150-400); RBC DISTRIBUTION WIDTH 13.6 % (12.0-16.0); RED CELL COUNT 3.47 10/6/uL (4.7-6.1); WHITE BLOOD CELLS 11.7 10/3/uL (4.5-10.5)
[2017-02-05 05:45] LABS: MANUAL DIFF NO %
[2017-02-05 07:15] LABS: PROCALCITONIN <0.05 ng/mL (<0.5)
[2017-02-05 15:30] LABS: ASCORBIC ACID (UR NOT ORDER) 40 (NEG); BILIRUBIN, URINE NEGATIVE (NEG); KETONE, URINE NEGATIVE (NEG); LEUKOCYTE ESTERASE(NOT OR MOD (NEG); WBC (NOT ORDERED) (RFLEX) 11 (0-5)
[2017-02-06 08:59] LABS: MEAN CORPUS HGB CONC 32.3 g/dL (32.0-36.0); MEAN CORPUSCULAR HEMOGLOB 30.1 pg (26.0-34.0); MEAN CORPUSCULAR VOLUME 93.4 fL (80-100); MEAN PLATELET VOLUME 9.8 fL (9.2-13.0); PLATELET COUNT 262 10/3/uL (150-400); RBC DISTRIBUTION WIDTH 13.8 % (12.0-16.0); RED CELL COUNT 3.32 10/6/uL (4.7-6.1); WHITE BLOOD CELLS 9.6 10/3/uL (4.5-10.5)
[2017-02-06 09:03] LABS: MANUAL DIFF YES %
[2017-02-06 10:12] LABS: BAND NEUTROPHILS 5 %; EOSINOPHILS 3 %; EOSINOPHILS ABSOLUTE (CALC) 0.29 10/3/uL (0.0-0.53); LYMPHOCYTES 7 %; LYMPHOCYTES ABSOLUTE (CALC) 0.67 10/3/uL (0.67-4.30); MONOCYTES 9 %; MONOCYTES ABSOLUTE (CALC) 0.86 10/3/uL (0.21-1.20); NEUTROPHILS ABSOLUTE (CALC) 7.78 10/3/uL (2.02-8.40); PLATELET ESTIMATE ADQ (ADEQUATE); RBC MORPHOLOGY NORM (NORMAL); SEGMENTED NEUTROPHIL (0) 76 %; TOTAL NUCLEATED CELLS 100
== END 2017-02-07 13:26 | DRG 129 ==
LOC: SDC/OF 05:40 → MIC 15:34 → 2SO 01-25 11:01
PROVIDERS: Anesthesiology; Internal Medicine; Internal Medicine Critical Care Medicine; Internal Medicine Pulmonary Disease; Nurse Practitioner Adult Health; Nurse Practitioner Family; Specialist; Surgery Plastic and Reconstructive Surgery
PROC: 0DH63UZ Insertion of Feeding Device into Stomach, Percutaneous Approach (ICD-10-PCS; 2017-01-15)
PROC: 07T10ZZ Resection of Right Neck Lymphatic, Open Approach (ICD-10-PCS; 2017-01-15)
PROC: 0NBV0ZZ Excision of Left Mandible, Open Approach (ICD-10-PCS; 2017-01-15)
PROC: 0WU Anatomical Regions, General, Supplement (ICD-10-PCS; 2017-01-15)
PROC: 07T20ZZ Resection of Left Neck Lymphatic, Open Approach (ICD-10-PCS; principal; 2017-01-15 07:15)
PROC: 0NBT0ZZ Excision of Right Mandible, Open Approach (ICD-10-PCS; 2017-01-15 07:15)
PROC: 5A1945Z Respiratory Ventilation, 24-96 Consecutive Hours (ICD-10-PCS; 2017-01-17)
PROC: 0BH17EZ Insertion of Endotracheal Airway into Trachea, Via Natural or Artificial Opening (ICD-10-PCS; 2017-01-17)
PROC: 0KXH0ZZ Transfer Right Thorax Muscle, Open Approach (ICD-10-PCS; 2017-01-17)
PROC: 0J943ZX Drainage of Right Neck Subcutaneous Tissue and Fascia, Percutaneous Approach, Diagnostic (ICD-10-PCS; 2017-01-31)
PROC: 0NST04Z Reposition Right Mandible with Internal Fixation Device, Open Approach (ICD-10-PCS; 2017-02-04)
DX: C00.9 Malignant neoplasm of lip, unspecified (principal); J95.821 Acute postprocedural respiratory failure; C79.52 Secondary malignant neoplasm of bone marrow; C79.51 Secondary malignant neoplasm of bone; D69.6 Thrombocytopenia, unspecified; R13.10 Dysphagia, unspecified; L02.11 Cutaneous abscess of neck; D64.9 Anemia, unspecified; R50.82 Postprocedural fever; N39.0 Urinary tract infection, site not specified; K20.9 Esophagitis, unspecified; K44.9 Diaphragmatic hernia without obstruction or gangrene; K29.70 Gastritis, unspecified, without bleeding; Y83.8 Other surgical procedures as the cause of abnormal reaction of the patient, or of later complication, without mention of misadventure at the time of the procedure; E78.00 Pure hypercholesterolemia, unspecified; I10 Essential (primary) hypertension; I25.10 Atherosclerotic heart disease of native coronary artery without angina pectoris; Y92.239 Unspecified place in hospital as the place of occurrence of the external cause; Z85.46 Personal history of malignant neoplasm of prostate; Z85.828 Personal history of other malignant neoplasm of skin; Z87.891 Personal history of nicotine dependence; Z92.3 Personal history of irradiation
CPT/HCPCS: 10030; 31720; 36415; 36569; 36600; 70491; 71010; 71020; 74000; 80048; 80053; 80069; 81001; 82805; 82962; 83735; 84100; 84134; 84145; 84436; 84443; 85025; 85730; 86850; 86900; 86901; 87040; 87070; 87075; 87077; 87086; 87186; 87205; 87641; 88305; 88307; 88309; 88311; 88331; 92610-GN; 93005; 94002; 94003; 94640; 94660; 97110-GO; 97110-GP; 97116-GP; 97162-GP; 97164-GP; 97167-GO; 97530-GO; 97530-GP; 97535-GO; A9270-GY; C1713; C1751; C9113; J0295; J0690; J1170; J1630; J1940; J2250; J2370; J2405; J2710; J2997; J3010; Q9967